=== PATIENT | male | born 1995 | race Two or more races ===

== ENCOUNTER 2024-04-22 19:32 | Emergency (ER) | payer OTHER ==
[~2024-04-22] VITALS: Ht 182.9 cm; Wt 170.0 kg
[2024-04-22 19:32] VITALS: BP 138/72; PULSE 90; RESP 20; O2SAT 95
[2024-04-22] MEDS: IBUPROFEN 600 MG TAB PO ONE (20:33)
[2024-04-22] MEDS ORDERED: IBUP-1456 PO (20:41)
[2024-04-22] MEDS ORDERED: ACE3T PO (22:19)
== END 2024-04-22 22:31 | disposition home or self-care (01) ==
LOC: ER 19:32
DX: S42.351A Displaced comminuted fracture of shaft of humerus, right arm, initial encounter for closed fracture (principal); Z79.1 Long term (current) use of non-steroidal anti-inflammatories (NSAID); V87.8XXA Person injured in other specified noncollision transport accidents involving motor vehicle (traffic), initial encounter; Y93.89 Activity, other specified; Y92.89 Other specified places as the place of occurrence of the external cause; Y99.8 Other external cause status
CPT/HCPCS: 29105; 71045; 73030; 73060